=== PATIENT | female | born 1960 | race Caucasian/White ===

== ENCOUNTER → 2017-04-21 | Outpatient (CLI) | payer OTHER ==
--- NOTE | 2017-04-21 15:26 | XR ---
EXAMINATION TYPE: XR knee complete RT DATE OF EXAM: 04/21/2017 CLINICAL HISTORY: pain TECHNIQUE: Three views of the right knee are obtained. COMPARISON: None. FINDINGS: There is no acute fracture/dislocation. The tri-compartment joint spaces appear within no rmal limits. Small joint effusion is noted. There is prepatellar soft tissue swelling. IMPRESSION: There is no acute fracture or dislocation. ICD 10 NO FRACTURE, INITIAL EVALUATION
== END ==
LOC: RADXRMAIN 15:10
PROVIDERS: ATTEND Emergency Medicine
DX: S80.01XA Contusion of right knee, initial encounter (principal)

== ENCOUNTER → 2017-12-12 | Outpatient (CLI) | payer BC ==
--- NOTE | 2017-12-12 16:39 | CTL ---
EXAMINATION TYPE: CT Low Dose Lung DATE OF EXAM ORDERED: 12/12/2017 HISTORY: History of tobacco use. History of COPD. Lung cancer screening CT DLP: 100.[address] CTDI: 2.68 mGy Automated exposure control for dose reduction was used. SCREENING VISIT: Baseline COMPARISON: Abdomen pelvis CT 01/05/2016 TECHNIQUE: Low dose computed tomography scan was performed through the chest at 1 mm thick sections and reconstructed images in the coronal and sagittal plane at 1 mm thick sections. Coronal MIP reconstructions performed. CT DIAGNOSTIC QUALITY: Satisfactory FINDINGS: Heart normal size with trace anterior pericardial thickening/fluid. Ascending aorta is ectatic at 3.6 cm. Conventional retropharyngeal anatomy. No thoracic lymphadenopathy by CT size criteria. There are scattered subtle centrilobular nodularity throughout the lungs. Minimal emphysematous change is noted scattered throughout. Mild diffuse bronchial wall thickening.. There are two 4 mm pulmonary nodules along the minor fissure, axial image 158 and 180 most likely representing pulmonary lymph nodes. Tiny 3 mm medial left upper lobe pulmonary nodule axial image 52. Otherwise, no suspicious pulmonary nodule or mass. Mild strandy atelectasis in the lower lungs. No consolidation or pleural effusion. In the visualized upper abdomen, there is a 3.5 cm hypodense lesion anterior segment 4A not seen on the CT of 01/05/2016. Postsurgical changes along the GE junction and proximal stomach. Partially visualized large right upper pole renal cyst measuring at least 7.4 cm. Bones: Mild endplate spondylosis mid to lower thoracic spine. IMPRESSION: 1. LungRADS Category 2 (benign appearance, <1% chance of malignancy) - a couple 4 mm and one 3 mm pulmonary nodule. 2. COPD with mild emphysematous change. 3. Very subtle centrilobular nodularity can be seen in the setting of respiratory bronchiolitis in smokers. 4. A new 3.5 cm lesion in the anterior hepatic dome as compared to 01/05/2016. RECOMMENDATION: 1. Continue annual lung cancer screening low-dose CT. 2. Smoking cessation. 3. Liver CT or MRI, correlation with tumor markers, and correlation with patient risk factors for primary or secondary liver malignancy. Both benign and malignant etiologies are in the differential at this time. FOLLOW UP CT CHEST RECOMMENDATION: [address] LUNG RAD: Lung-Rad 2 Benign Appearance or Behavior MTDD
== END | disposition home or self-care (01) ==
LOC: RADCTMAIN 15:48
PROVIDERS: ATTEND Family Medicine
DX: J43.9 Emphysema, unspecified (principal); R91.8 Other nonspecific abnormal finding of lung field; Z87.891 Personal history of nicotine dependence

== ENCOUNTER → 2018-01-09 | Outpatient (CLI) | payer OTHER ==
--- NOTE | 2018-01-14 11:20 | MM ---
Reason for exam: screening (asymptomatic). Last mammogram was performed 15 years and 3 months ago. History: Family history of breast cancer. Physical Findings: A clinical breast exam by your physician is recommended on an annual basis and results should be correlated with mammographic findings. MG Screening Mammo w CAD Bilateral CC and MLO view(s) were taken. Prior study comparison: December 15, 2012, mammogram, performed at [facility]. The breast tissue is heterogeneously dense. This may lower the sensitivity of mammography. No suspicious groups of calcifications. Few right calcifications. No suspicious abnormality. ASSESSMENT: Benign, BI-RAD 2 RECOMMENDATION: Routine screening mammogram of both breasts in 1 year.
== END | disposition home or self-care (01) ==
LOC: RADMAMWWP 13:05
PROVIDERS: ATTEND Family Medicine
DX: Z12.31 Encounter for screening mammogram for malignant neoplasm of breast (principal); Z80.3 Family history of malignant neoplasm of breast
CPT/HCPCS: 77067